=== PATIENT | female | born 1935 | race African-American/Black ===

== ENCOUNTER 2017-06-12 13:24 | Emergency (ER) | payer MEDICARE, MEDICAID ==
[~2017-06-12] VITALS: Ht 170.2 cm; Wt 82.0 kg
[~2017-06-12 13:24] MED LIST: ALBU18HF2 INH; ASPI-1159 PO; BECL8.7A5 INH; COLC0.6T66 PO; CYCL5TAB PO; HYDR-4005 PO; LEVO100T9 PO; LOSA50TA20 PO; MELO-106 PO; MIRT-91 PO; Magnesium Oxide PO; PANT40TA4 PO; SIMV20TA6 PO; SITA100T11 PO; TRAM50TA PO
[2017-06-12 18:25] LABS: BASOPHILS % 0.5 % (0.0-2.0); EOSINOPHILS % 3.3 % (0.0-5.0); HEMATOCRIT. 36.8 % (36.0-48.0); HEMOGLOBIN. 11.9 g/dL (12.0-16.0); LYMPHOCYTES % 17.4 % (20.0-50.0); MEAN CORPUSCULAR VOLUME 89.6 fL (81.0-99.0); MEAN PLATELET VOLUME 9.8 fl (7.4-10.4); MONOCYTES % 6.2 % (2.0-8.0); NEUTROPHILS % 72.6 % (40.0-76.0); PLATELET 190 x1000/uL (130-400); RED BLOOD CELL COUNT 4.11 mill/uL (4.2-5.4); RED CELL DISTRIBUTION WIDTH 14.2 % (11.6-14.6)
[2017-06-12 18:29] LABS: PROTHROMBIN TIME 10.7 sec (9.4-11.6)
[2017-06-12 18:39] LABS: CARBON DIOXIDE 32 mEq/L (21-32); CHLORIDE 105 mEq/L (98-107); TROPONIN I < 0.02 ng/mL (0.00-0.04)
[2017-06-12] MEDS ORDERED: DEXAMETHASONE 10 MG/ML VIAL IM ONE (19:45)
[2017-06-12] MEDS ORDERED: KETOROLAC 30MG/ML VIAL IM ONE (19:45)
[2017-06-12] MEDS ORDERED: AMOXICILLIN/POTASSIUM CLAVULANATE 875/125MG TAB PO ONE (19:45)
[2017-06-12 20:07] VITALS: BP 166/78
== END 2017-06-12 22:19 | disposition home or self-care (01) ==
LOC: ER 15:22
DX: J02.9 Acute pharyngitis, unspecified (principal); H92.02 Otalgia, left ear; E11.9 Type 2 diabetes mellitus without complications; I10 Essential (primary) hypertension; I44.0 Atrioventricular block, first degree; J44.9 Chronic obstructive pulmonary disease, unspecified; Z88.5 Allergy status to narcotic agent; Z88.1 Allergy status to other antibiotic agents; Z88.3 Allergy status to other anti-infective agents; Z79.82 Long term (current) use of aspirin; Z79.899 Other long term (current) drug therapy
CPT/HCPCS: 36415; 71045; 80053; 83880; 84484; 85025; 85610; 86850; 86900; 86901; 93005; 96372; 99285; J1100; J1885